=== PATIENT | male | born 1985 | race Caucasian/White ===

== ENCOUNTER 2021-03-24 11:28 | Emergency (ER) | payer OTHER, SELFPAY ==
--- NOTE | ~2021-03-24 | XR_ITS ---
EXAMINATION: RIGHT HUMERUS, RIGHT FOREARM AND RIGHT HAND/WRIST CLINICAL INFORMATION: Crush injury. COMPARISON: None TECHNIQUE: 2 views right humerus. 2 views right forearm. 4 views right wrist. FINDINGS: Right humerus: There is no visible acute fracture, dislocation or bone marrow abnormality. There is a small bony protuberance along the distal right humerus likely a small osteochondroma or focal periostitis. The soft tissues are normal. Right forearm: No visible acute fracture, dislocation subluxation. There is a moderate size olecranon and coronoid processes enthesophytes. No abnormal joint effusion seen. The soft tissues are normal. Right hand/wrist: No visible acute fracture, dislocation or subluxation. The PIP, DIP, MCP and intercarpal joints are maintained normal. The soft tissues are normal. XR/XR humerus RT IMPRESSION: No visible acute fracture, dislocation right humerus, right forearm or right hand/wrist. There is a small focal bony protuberance along the distal right humerus likely a small osteochondroma or focal periostitis from previous injury. Small enthesophytes along olecranon and coronoid process of the right elbow. No or soft tissue abnormality. Unremarkable right wrist exam.
--- NOTE | ~2021-03-24 | XR_ITS ---
EXAMINATION: RIGHT HUMERUS, RIGHT FOREARM AND RIGHT HAND/WRIST CLINICAL INFORMATION: Crush injury. COMPARISON: None TECHNIQUE: 2 views right humerus. 2 views right forearm. 4 views right wrist. FINDINGS: Right humerus: There is no visible acute fracture, dislocation or bone marrow abnormality. There is a small bony protuberance along the distal right humerus likely a small osteochondroma or focal periostitis. The soft tissues are normal. Right forearm: No visible acute fracture, dislocation subluxation. There is a moderate size olecranon and coronoid processes enthesophytes. No abnormal joint effusion seen. The soft tissues are normal. Right hand/wrist: No visible acute fracture, dislocation or subluxation. The PIP, DIP, MCP and intercarpal joints are maintained normal. The soft tissues are normal. XR/XR forearm RT 2V IMPRESSION: No visible acute fracture, dislocation right humerus, right forearm or right hand/wrist. There is a small focal bony protuberance along the distal right humerus likely a small osteochondroma or focal periostitis from previous injury. Small enthesophytes along olecranon and coronoid process of the right elbow. No or soft tissue abnormality. Unremarkable right wrist exam.
--- NOTE | ~2021-03-24 | XR_ITS ---
EXAMINATION: RIGHT HUMERUS, RIGHT FOREARM AND RIGHT HAND/WRIST CLINICAL INFORMATION: Crush injury. COMPARISON: None TECHNIQUE: 2 views right humerus. 2 views right forearm. 4 views right wrist. FINDINGS: Right humerus: There is no visible acute fracture, dislocation or bone marrow abnormality. There is a small bony protuberance along the distal right humerus likely a small osteochondroma or focal periostitis. The soft tissues are normal. Right forearm: No visible acute fracture, dislocation subluxation. There is a moderate size olecranon and coronoid processes enthesophytes. No abnormal joint effusion seen. The soft tissues are normal. Right hand/wrist: No visible acute fracture, dislocation or subluxation. The PIP, DIP, MCP and intercarpal joints are maintained normal. The soft tissues are normal. XR/XR hand wrist RT IMPRESSION: No visible acute fracture, dislocation right humerus, right forearm or right hand/wrist. There is a small focal bony protuberance along the distal right humerus likely a small osteochondroma or focal periostitis from previous injury. Small enthesophytes along olecranon and coronoid process of the right elbow. No or soft tissue abnormality. Unremarkable right wrist exam.
[2021-03-24 11:41] VITALS: BP 187/89; PULSE 95; RESP 18; TEMP 36.6; O2SAT 99; BMI 28.7
--- NOTE | 2021-03-24 12:55 | ED.UPPEXIN ---
HPI - Extremity Injury (Upper) General Chief Complaint: Extremity Injury, Lower Stated Complaint: arm injury - work related Time Seen by Provider: 03/24/21 12:34 Source: patient Mode of arrival: ambulatory Limitations: no limitations History of Present Illness HPI narrative: 35-year-old male with no significant past medical history presenting to the ED with complaints of right shoulder/right upper arm/right elbow/right humerus/right wrist and hand pain after his entire right extremity was trapped under a machine at work prior to arrival. Patient was unable to get free from the machine due to the power was shut off. Denies any other injuries complaints or concerns at this time. MD complaint: injury to: right, shoulder, arm, elbow, forearm, wrist, hand and finger Onset (ago): minute(s) (Prior to arrival) Other injuries: none Place: work Severity: moderate Relieving factors: rest Exacerbating factors: movement of extremity Context: crush Associated symptoms: numbness Related Data Previous Rx's Medication Instructions Recorded acetaminophen [Tylenol Extra 1,000 mg PO QID PRN #14 tab 03/24/21 Strength] ibuprofen 800 mg PO Q8H PRN #14 tab 03/24/21 oxycodone 5 mg PO BID PRN #10 tab 03/24/21 Allergies Allergy/AdvReac Type Severity Reaction Status Date / Time No Known Allergies Allergy Unverified 07/01/20 19:08 [No Known Allergies*] Review of Systems Review of Systems: Constitutional : No changes in activity, No lethargy, No recent prior head injury, No agitation, No increased fussiness ENT/Mouth : No Ear Pain, No Nasal discharge/drainage Eyes: No Eye Pain, No Swelling, No Redness, No Foreign Body, No Vision Changes Cardiovascular : No Chest Pain, No SOB Respiratory : No Cough Gastrointestinal : No Nausea, No Vomiting, No abdominal Pain Genitourinary : No Dysuria, No Urinary Frequency, No Urinary Incontinence, No Urgency, No Flank Pain Musculoskeletal : + joint pain, No neck stiffness, No back pain/injury Skin : No lacerations Neuro : No unsteady gait, No Paresthesias, No Loss of Consciousness, No altered mental status, No Headache Yes all other systems are reviewed and are negative [facility] Past Medical History Attestation statement: The following information was validated with the patient. Medical History No known health problems Social History Social History Advance Directives: No Advance Directives Information Provided: No Physical Exam Vital Signs: Vital Signs: Last Vital Signs Temp 98 F 03/24/21 11:41 Pulse 95 03/24/21 11:41 Resp 18 03/24/21 11:41 BP 187/89 H 03/24/21 11:41 Pulse Ox 99 03/24/21 11:41 Body Mass Index 28.7 vital signs have been reviewed as normal and appeared to be correct. Blood pressure hypertensive at 187/89. Heart rate normal. Respiration rate normal. Temperature normal. Oxygen saturation normal. Appearance: Alert. Oriented X3. No acute distress. Head: Normal external exam. Normocephalic. Atraumatic. Eyes: PERRLA. EOMI. Conjunctiva and sclera normal. Eyelids normal. ENT: Pharynx normal. Uvula midline. Moist mucous membranes. Neck: Normal inspection. Neck supple. FROM. No adenopathy. Thyroid Normal. No meningeal signs. No neck mass noted. CVS: Normal heart rate and rhythm. Heart sound normal. Pulses normal throughout. No murmurs/rales/gallops. Respiratory: No respiratory distress. Painless inspiration. Breath sounds normal. No wheezes/rales/rhonchi noted. Chest nontender. No accessory muscle usage noted or decreased air movement noted. Back: Full range of motion noted. No rashes/lesion/induration/fluctuance or signs of infection noted. Skin: Skin warm and dry. Normal skin color. Normal skin turgor. No rashes/lesions/lacerations noted. Extremities: Patient with tenderness to palpation to right shoulder/upper arm/elbow/forearm/wrist/hand/fingers although full range of motion in the entire extremity no obvious deformities or signs of infection. Patient has sensation in the entire arm. No laxity is noted to the entire arm. All other Extremities exhibit normal range of motion and nontender. Neuro: Oriented X 3. No motor deficit. No sensory deficit. Reflexes normal. Normal steady gait. No focal neuro deficits noted. Vascular: + radial pulses. Normal cap refill. No cyanosis noted to upper extremity nails and lower extremity toes nails. Course Course Course Narrative: 35-year-old male presenting to the ED with crush injury to the right upper extremity at work prior to arrival. On exam patient has tenderness to palpation to the entire arm. Although no obvious deformity and he has full range of motion and sensation to the entire arm. No signs of infection. X-ray obtained and negative for any acute processes. Will place in a sling and explained to the patient he needs to do [id number] exercises to prevent frozen shoulder given a copy of his x-ray report due to small osteochondroma. Will DC home with instructions to return if any new or worsening symptoms to follow up with [facility] and PCP. Patient understands agrees with this plan. MDM - Extremity Injury (Upper) Medical Records Attestation: I reviewed the patient's medical records. Imaging Data X-ray of right humerus/forearm/hand and wrist: Attestation: I personally reviewed and interpreted this imaging study as follows: Radiologist's impression: FINDINGS: Right humerus: There is no visible acute fracture, dislocation or bone marrow abnormality. There is a small bony protuberance along the distal right humerus likely a small osteochondroma or focal periostitis. The soft tissues are normal. Right forearm: No visible acute fracture, dislocation subluxation. There is a moderate size olecranon and coronoid processes enthesophytes. No abnormal joint effusion seen. The soft tissues are normal. Right hand/wrist: No visible acute fracture, dislocation or subluxation. The PIP, DIP, MCP and intercarpal joints are maintained normal. The soft tissues are normal. XR/XR forearm RT 2V IMPRESSION: No visible acute fracture, dislocation right humerus, right forearm or right hand/wrist. There is a small focal bony protuberance along the distal right humerus likely a small osteochondroma or focal periostitis from previous injury. Small enthesophytes along olecranon and coronoid process of the right elbow. No or soft tissue abnormality. Unremarkable right wrist exam. Discharge Plan Discharge Clinical Impression: Sprain of right upper arm, Sprain of right forearm, Sprain and strain of right hand, Sprain of right shoulder, Work related injury, Osteochondroma of humerus Patient Disposition: Home, Self-Care Instructions: Shoulder Sprain (ED), Hand Sprain (ED), Benign Bone Tumor (DC), Shoulder Immobilizer (ED) Prescriptions: New acetaminophen [Tylenol Extra Strength] 500 mg tablet 1,000 mg PO QID PRN (Reason: fever or pain) Qty: 14 RF: 0 ibuprofen 800 mg tablet 800 mg PO Q8H PRN (Reason: pain) Qty: 14 RF: 0 oxycodone 5 mg tablet 5 mg PO BID PRN (Reason: pain) Qty: 10 RF: 0 Referrals: [facility] [Provider Group] - 2 days Parminder Chan MD [Primary Care Provider] - 2 days Stand Alone Forms: Work/School Release Print Language: [place]
== END 2021-03-24 13:08 | disposition home or self-care (01) ==
PROVIDERS: Emergency Provider Emergency Medicine Emergency Medical Services; PCP Family Medicine
DX: S43.401A Unspecified sprain of right shoulder joint, initial encounter (principal); S63.91XA Sprain of unspecified part of right wrist and hand, initial encounter; W31.82XA Contact with other commercial machinery, initial encounter; D16.01 Benign neoplasm of scapula and long bones of right upper limb; Y93.89 Activity, other specified; Y92.59 Other trade areas as the place of occurrence of the external cause; Y99.0 Civilian activity done for income or pay
CPT/HCPCS: 73060; 73090; 73110; 73130; 99283

== ENCOUNTER → 2021-04-04 08:41 | Outpatient (BNVA) | payer OTHER, SELFPAY | PROVIDERS: PCP Family Medicine; Visit Provider Internal Medicine | DX: S40.021A Contusion of right upper arm, initial encounter (principal); W31.9XXA Contact with unspecified machinery, initial encounter; M24.811 Other specific joint derangements of right shoulder, not elsewhere classified | CPT/HCPCS: 99202 ==

== ENCOUNTER → 2021-04-14 09:47 | Outpatient (BNVA) | payer OTHER, SELFPAY | PROVIDERS: PCP Family Medicine; Visit Provider Internal Medicine | DX: S47 Crushing injury of shoulder and upper arm (principal); X58.XXXD Exposure to other specified factors, subsequent encounter | CPT/HCPCS: 99213 ==